=== PATIENT | female | born 1970 | race Caucasian/White ===

== ENCOUNTER 2017-08-21 07:58 | Day surgery (SDC) | payer OTHER ==
[2017-08-18 13:45] VITALS: BMI 24.3
--- NOTE | 2017-08-20 09:31 | HP ---
HISTORY AND PHYSICAL CHIEF COMPLAINT: Left shoulder pain. 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 However, it has worsened recently. She is having pain with attempted overhead use and at night. She notes progressive weakness and stiffness. She has tried medications with only partial temporary relief. PAST MEDICAL HISTORY: Negative. PAST SURGICAL HISTORY: Negative. CURRENT ALLERGIES: Ibuprofen. ALLERGIES: She denies drug allergies. FAMILY HISTORY: Significant for cancer and renal disease. SOCIAL HISTORY: Negative for current tobacco or alcohol use. REVIEW OF SYSTEMS: Sixteen point review of systems otherwise reviewed and is noncontributory. PHYSICAL EXAMINATION: On examination, the patient is approximately 5 feet 8 inches, 163 pounds of mesomorphic habitus. HEENT exam is nonfocal. Neck is supple. On examination of her left shoulder, she is tender about the anterior subacromial space. She has moderate subacromial crepitus. Active range of motion forward elevation 85 degrees, external rotation with arm at side 25 degrees, internal rotation to the buttock. Passively I am able to forward elevate her to 90 degrees. Motor strength is 5 minus over 5 for abduction and external rotation. Impingement, Neer tests are positive. Her distal neurovascular appears to be intact in the left upper extremity. report of left shoulder obtained in the office show shows a moderate effusion along with some glenohumeral joint osteoarthrosis. No definite rotator cuff tear is noted. Laboratory results show rheumatoid factor negative, Sed rate 8, C-reactive protein less than 5. IMPRESSION: 1. Left shoulder adhesive capsulitis/impingement. 2. Left glenohumeral joint osteoarthrosis/synovitis. RECOMMENDATIONS: I talked to the patient and her at length regarding her treatment options. At this point, she is quite symptomatic despite conservative measures. After thorough discussion, they opt to proceed with surgery. We will plan to proceed to arthroscopic evaluation with probable subacromial decompression and possible partial synovectomy. We will also likely perform a manipulation under anesthesia. Risks and benefits were discussed at length in layman's terms. We will likely perform that as an outpatient procedure. MMODL / IJN: [id number] /
[~2017-08-21 07:58] MED LIST: DEXAMETHASONE SOD PHOSPHATE 10 MG/ML 1 ML VIAL IV ONE; LIDOCAINE 1% 20 ML VIAL (10MG/ML) FOR IV START INTRADERMA PRN; ONDANSETRON 4 MG/2 ML VIAL IVP ONE; SCOPOLAMINE 1.5MG/72HR PATCH TRANSDERM ONE; ceFAZolin IN SWFI 2 GM/20 ML SYRINGE IVP ONE
[2017-08-21] MEDS: LACTATED RINGERS 1,000 ML IV SCH ×2 (08:33→12:29)
[2017-08-21] MEDS ORDERED: MIDAZOLAM 2 MG/2 ML VIAL IV ONE (09:10)
[2017-08-21 09:19] LABS: Potassium 3.9 mmol/L (3.5-5.1)
[2017-08-21] MEDS ORDERED: LIDOCAINE 1% INJ 10MG/ML (20 ML MDV) ONE (09:42)
[2017-08-21] MEDS ORDERED: SUCCINYLCHOLINE CHLORIDE 100 MG/5 ML SYR IV ONE (09:42)
[2017-08-21] MEDS ORDERED: ROPIVACAINE 5 MG/ML 30 ML VIAL ONE (09:42)
[2017-08-21] MEDS ORDERED: LIDOCAINE 2%-EPI 1:100,000 20 ML VIAL ONE (09:42)
[2017-08-21] MEDS ORDERED: fentaNYL (PF) 50 MCG/ML 2 ML AMP ONE (09:42)
[2017-08-21] MEDS ORDERED: PROPOFOL 10 MG/ML 20 ML VIAL IV ONE (09:42)
[2017-08-21] MEDS ORDERED: MIDAZOLAM 2 MG/2 ML VIAL ONE (09:42)
[2017-08-21] MEDS ORDERED: SODIUM CHLORIDE 0.9% 0 ML with ceFAZolin 2 GM IV ONE ×2 (09:42)
--- NOTE | 2017-08-21 10:39 | P.OP ---
Date of Procedure: 08/21/17 Preoperative Diagnosis: Left shoulder impingement/adhesive capsulitis/synovitis Postoperative Diagnosis: Same Procedure(s) Performed: Left shoulder arthroscopic subacromial decompression/manipulation under anesthesia/synovectomy Anesthesia: gildardo LOU Surgeon: Nain Bradley [employer] [employer] #1: Daniel Herman Estimated Blood Loss (ml): 10 Pathology: none sent Condition: stable Disposition: PACU Indications for Procedure: The patient's a 46-year-old female that presents with progressive left shoulder pain and stiffness despite conservative measures. A discussion of the risks and benefits of operative intervention versus continued conservative measures was made with the patient. She opted to proceed with surgery. Operative risks to include infection, neurovascular injury, development of blood clots, possible incomplete resolution of symptoms, possible worsening symptoms and need for subsequent procedures was discussed. Informed consent was obtained. Operative Findings: As below Description of Procedure: The patient was brought to the operating room, and after induction of general anesthesia was placed into a beachchair position. The bony prominences were appropriately padded. I examined the left shoulder. There was significant adhesions and block to passive motion. With her arm at her side a first obtained full external rotation with manipulation. I then obtained full forward elevation. Moderate adhesions were encountered. The left upper extremity was then prepped and draped in normal fashion. The bony outlines the acromion, distal clavicle, and coracoid process were outlined with a skin marker. The glenohumeral joint was inflated 50 mL of saline utilizing a spinal needle from a posterior approach. A posterior portal was made through a 5 mm skin incision 1 cm medial and inferior to the posterior lateral border of the acromion. A blunt trocar was used to easily into the joint. Diagnostic arthroscopy was performed. An anterior portal was made just lateral to the coracoid process entering the joint above the subscapularis. The subscapularis was intact. The rotator interval skin synovitis that was debrided with a motorized shaver. The anterior labrum was intact. The biceps anchor was intact. There was hyperemia around the long head of the biceps, however no significant tear. The rotator cuff appeared intact on the articular surface. The posterior labrum was intact. The inferior recess was inspected. The arthroscope was then placed into the subacromial space. A lateral portal was made through a 5 motor skin incision 2 cm inferior to the anterior lateral border of the acromion. The soft tissue on the undersurface of the acromion was debrided with motorized shaver and with electrocautery clearly defining the anterior medial and lateral borders as well as the distal clavicle. Significant subacromial bursal thickening was noted and that was debrided with a motorized shaver. The rotator cuff appeared intact on the bursal surface. An anterior inferior acromioplasty was then performed with a motorized dipika starting anterolateral, then extending this posteriorly, then extending this medially. I was able to convert to a flat acromion. This was verified from the posterior and lateral viewing portals. The arthroscope was then removed. The portals were closed with simple 3-0 nylon suture. A sterile dressing was applied in addition to a sling. The patient was awoken from general anesthesia and transferred to recovery room in good condition. Blood loss was estimated at 10 mL. No complications were incurred. Sponge and needle counts were correct at the end the case.
[2017-08-21 10:58] VITALS: TEMP 97
[2017-08-21 11:02] VITALS: RESP 16
[2017-08-21 12:11] VITALS: BP 143/88; PULSE 84
--- NOTE | 2017-08-22 14:07 | P.ONQ ---
Anesthesiology Proc Note - PNB - Peripheral Nerve Block Performed Left Interscalene Single Time Out Performed: Yes Procedure Start Time: :10 Procedure Stop Time: :16 Indication: Acute Post-Operative Pain, Requested by physician Sedation Type: Sedate with meaningful contact maintained Preparation: Sterile Prep Position: Supine Needle Size: 50mm (2") Needle Gauge: 21 Technique: Ultrasound (ropi .5% 20cc plus xyl2% with epi and decadron 3mg) Blood Aspirated: No Pain Paresthesia on Injection Noted: No Resistance on Injection: Normal Events: Uneventful and Well Tolerated
== END 2017-08-21 12:53 | disposition home or self-care (01) ==
LOC: OR 07:58
PROVIDERS: ATTEND Orthopaedic Surgery
DX: M75.02 Adhesive capsulitis of left shoulder (principal); M75.42 Impingement syndrome of left shoulder; M65.9 Synovitis and tenosynovitis, unspecified; Z79.899 Other long term (current) drug therapy; Z88.6 Allergy status to analgesic agent
CPT/HCPCS: 64415; 81025; 80051; 29822; J2250; J1100; J0690; J2405; J2001; J3010; J2795; J0330; J2704